=== PATIENT | female | born 1975 | race Caucasian/White ===

== ENCOUNTER 2024-10-30 10:11 | Emergency (ER) | payer BC ==
[~2024-10-30] VITALS: Ht 167.6 cm; Wt 68.0 kg
[2024-10-30] MEDS: TDAP [DIPH/PERTUSSIS/TET] 0.5 ML VIAL IM ONE (11:34)
[2024-10-30 13:47] VITALS: BP 122/68; TEMP 98.6; O2SAT 100
== END 2024-10-30 13:47 | disposition home or self-care (01) ==
LOC: ER 10:11
DX: S61.411A Laceration without foreign body of right hand, initial encounter (principal); W25.XXXA Contact with sharp glass, initial encounter; Y93.89 Activity, other specified; Y92.89 Other specified places as the place of occurrence of the external cause; Y99.8 Other external cause status
CPT/HCPCS: 12002; 73120; 99283; A6403